=== PATIENT | female | born 1990 | race Caucasian/White ===

== ENCOUNTER 2017-05-20 13:06 | Emergency (ER) | payer MEDICAID ==
[~2017-05-20] VITALS: Ht 154.9 cm; Wt 68.0 kg
[2017-05-20 13:13] VITALS: BP_SYST 126
[2017-05-20] MEDS ORDERED: IPRATROPIUM/ALBUTEROL SULFATE 3 ML AMPUL.NEB ONE (13:28)
[2017-05-20] MEDS ORDERED: DEXAMETHASONE SOD PHOSPHATE 10 MG/ML VIAL IVP ONE (13:30)
[2017-05-20] MEDS ORDERED: IPRATROPIUM/ALBUTEROL SULFATE 3 ML AMPUL.NEB INH ONE (13:30)
[2017-05-20 13:55] VITALS: BP_SYST 120
== END 2017-05-20 13:55 | disposition home or self-care (01) ==
LOC: SED 13:06
DX: J45.901 Unspecified asthma with (acute) exacerbation (principal); R03.0 Elevated blood-pressure reading, without diagnosis of hypertension
CPT/HCPCS: 94640; 96374; 99284; J1100